=== PATIENT | female | born 2000 | race African-American/Black ===

== ENCOUNTER 2022-06-22 06:16 | Emergency (ER) | payer MEDICAID, SELFPAY ==
[2022-06-22 06:25] VITALS: BP 132/83; PULSE 76; RESP 18; O2SAT 98
--- NOTE | 2022-06-22 07:01 | ED.GENADULT ---
HPI - General Adult General Chief complaint: Dental/Oral Stated complaint: toothpain Time Seen by Provider: 06/22/22 06:27 History of Present Illness HPI narrative: 22-year-old female presented to the emergency department for evaluation of worsening dental pain. Patient states that she has had dental pain for approximately last 2 years. Patient did have a fractured tooth a few months ago and states that over the last 2 days she has had even worsening pain. Patient is also concerned she may be . Related Data Allergies Allergy/AdvReac Type Severity Reaction Status Date / Time No Known Allergies Allergy Verified 06/22/22 07:20 Review of Systems Review of Systems: CONSTITUTIONAL: Denies fever, chills, or sweats. EYES: Denies visual changes, redness, or discharge. ENT: Dental pain CARDIOVASCULAR: Denies chest pain, palpitations, or edema. RESPIRATORY: Denies cough or dyspnea. GASTROINTESTINAL: Denies abdominal pain, nausea, vomiting, or diarrhea. GENITOURINARY: Denies dysuria or hematuria. SKIN: Denies rash or itching. MUSCULOSKELETAL: Denies back pain, joint pain, or myalgia. NEUROLOGIC: Denies headache, numbness, or weakness. Exam Narrative: APPEARANCE: Well appearing, no pain, no distress, well-nourished. HEAD: normocephalic, atraumatic. EYES: PERRLA/EOMI, conjunctivae clear. NOSE: Normal no drainage EARS:TMS clear with good light reflex. THROAT: Pharynx clear, no exudate. Multiple dental caries NECK: Supple. No adenopathy, no masses. RESPIRATORY: Airway patent, respirations nonlabored. Clear to auscultation bilaterally, no rales, rhonchi, wheezing. CARDIOVASCULAR: Regular rate and rhythm without murmurs rubs or gallops. ABDOMINAL: Soft, nontender, nondistended, normal bowel sounds MUSCULOSKELETAL: Moves all extremities. Strength/ROM intact, No edema, No calf tenderness. NEURO: Alert. Cranial nerves II through XII intact. Grossly intact SKIN: Warm, dry. Normal Color Course Course Emergency Course: No dental abscess amenable to drainage. Patient was started on antibiotics for suspected dental infection. Patient's test was negative. Patient was encouraged of close follow-up with a dentist. Vital Signs Vital signs: Vital Signs Pulse Rate 76 06/22/22 06:25 Respiratory Rate 18 06/22/22 06:25 Blood Pressure 132/83 06/22/22 06:25 Pulse Oximetry 98 06/22/22 06:25 Pulse Rate 76 06/22/22 06:25 Respiratory Rate 18 06/22/22 06:25 Blood Pressure 132/83 06/22/22 06:25 Pulse Oximetry 98 06/22/22 06:25 Medical Decision Making Vital Signs Vital Signs: Vital Signs Pulse Rate 76 06/22/22 06:25 Respiratory Rate 18 06/22/22 06:25 Blood Pressure 132/83 06/22/22 06:25 Pulse Oximetry 98 06/22/22 06:25 Pulse Rate 76 06/22/22 06:25 Respiratory Rate 18 06/22/22 06:25 Blood Pressure 132/83 06/22/22 06:25 Pulse Oximetry 98 06/22/22 06:25 Discharge Plan Discharge Clinical Impression: Toothache, Dental caries Patient Disposition: Home, Self-Care Condition: Stable Instructions: Antibiotic Form, Toothache (ED) Additional Instructions: Tylenol for pain control. Antibiotic as directed until completed. Have close follow-up with a dentist. If you have any worsening symptoms then please call or return to the emergency department. Prescriptions: New amoxicillin-pot clavulanate 875-125 mg tablet 1 tablet PO Q12H Qty: 14 0RF Follow-up/Referrals: UNKNOWN,DOCTOR [Primary Care Provider] - Stand Alone Forms: Work/School Release IP
[2022-06-22] MEDS: ACETAMINOPHEN 500 MG TABLET 1000 MG PO (07:21)
[2022-06-22] MEDS: AMOXICILLIN/CLAVULANATE K 875-125 MG TAB 1 TABLET PO (07:22)
== END 2022-06-22 07:48 | disposition home or self-care (01) ==
PROVIDERS: Emergency Provider Emergency Medicine
DX: K02.9 Dental caries, unspecified (principal)
CPT/HCPCS: 81025; 99283; A9270

== ENCOUNTER 2023-01-31 13:23 | Emergency (ER) | payer MEDICAID, SELFPAY ==
[2023-01-31 13:26] VITALS: BP 143/77; PULSE 61; RESP 16; TEMP 36.5; O2SAT 100
--- NOTE | 2023-01-31 15:15 | ED.DENTAL ---
HPI - Dental/Oral General Chief complaint: Dental/Oral Stated complaint: toothache Time Seen by Provider: 01/31/23 13:51 Source: patient Mode of arrival: ambulatory Limitations: no limitations History of Present Illness HPI Narrative: This is a 22-year-old female presents to the ED with chief complaint of right upper tooth pain for 3 years. Patient states that she has not seen any dentist because she does not have insurance. States she was seen here 3 months ago and given amoxicillin which seemed like it helped. Denies any fevers, chills, trismus, drooling, voice changes. Related Data Allergies Allergy/AdvReac Type Severity Reaction Status Date / Time No Known Allergies Allergy Verified 06/22/22 07:20 Review of Systems Review of Systems: CONSTITUTIONAL: Denies fever, chills, or sweats. EYES: Denies visual changes, redness, or discharge. ENT: See HPI CARDIOVASCULAR: Denies chest pain, palpitations, or edema. RESPIRATORY: Denies cough or dyspnea. GASTROINTESTINAL: Denies abdominal pain, nausea, vomiting, or diarrhea. GENITOURINARY: Denies dysuria or hematuria. SKIN: Denies rash or itching. MUSCULOSKELETAL: Denies back pain, joint pain, or myalgia. NEUROLOGIC: Denies headache, numbness, dizziness, or weakness. PSYCHIATRIC: Denies anxiety or depression. Exam Narrative: GENERAL: Well-appearing, well-nourished, and in no acute distress. HEAD: Normocephalic, atraumatic. EYES: PERRLA and EOMI. ENT: Nares clear, no rhinorrhea or epistaxis. Mucous membranes moist. Oropharynx without tonsillar hypertrophy exudate or other lesions. No drooling. No trismus. Floor the mouth intact. No overt abscesses. Uvula midline. Dental caries noted to the right upper premolar. NECK: Supple. No adenopathy or masses. CHEST: No respiratory distress. Clear to auscultation. No wheezes rales or rhonchi HEART: Regular rate and rhythm. No murmur heard. Normal peripheral pulses. ABDOMEN: Soft, nontender, nondistended, normal active bowel sounds. EXTREMITIES: Normal range of motion. No edema. SKIN: Warm, dry, no rash. NEURO: Alert and oriented x3. No focal deficits. PSYCH: Normal mood and affect. Course Vital Signs Vital signs: Vital Signs Temperature 97.7 F 01/31/23 13:26 Pulse Rate 61 01/31/23 13:26 Respiratory Rate 16 01/31/23 13:26 Blood Pressure 143/77 H 01/31/23 13:26 Pulse Oximetry 100 01/31/23 13:26 Oxygen Delivery Room Air 01/31/23 13:26 Temperature 97.7 F 01/31/23 13:26 Pulse Rate 61 01/31/23 13:26 Respiratory Rate 16 01/31/23 13:26 Blood Pressure 143/77 H 01/31/23 13:26 Pulse Oximetry 100 01/31/23 13:26 Oxygen Delivery Room Air 01/31/23 13:26 MDM - Dental/Oral MDM Narrative Medical decision making narrative: This is a 22-year-old female presents to the ED with chief complaint of right upper dental pain. Vitals are stable. Afebrile. No trismus, drooling, uvula deviation. The floor of the mouth is intact. There are some caries on the right upper premolars. No obvious abscess but some swelling. Patient will be discharged in stable condition. Given prescription for Augmentin. Resources given for public a dental. Patient is understanding and agreeable with the plan for discharge and follow-up with a dentist for this. Discharge Plan Discharge Clinical Impression: Toothache, Dental caries Patient Disposition: Home, Self-Care Condition: Stable Instructions: Antibiotic Form Additional Instructions: Your symptoms are consistent with cavities on the right side. Please make sure that you see a dentist on our referral list. Please take Tylenol, ibuprofen as needed for pain. Also make sure that you are taking your antibiotics. If you have any fevers or difficulty with swallowing please return to the ER for further evaluation Prescriptions: New amoxicillin-pot clavulanate 875-125 mg tablet 1 tablet PO Q12H Qty: 10 0RF No Action amoxicillin-pot cl
--- NOTE | 2023-01-31 15:39 | PC.NURSE ---
patient states I do not have time to wait for medication my ride is here.
== END 2023-01-31 15:41 | disposition home or self-care (01) ==
PROVIDERS: Emergency Provider Physician Assistant
DX: K02.9 Dental caries, unspecified (principal); K08.89 Other specified disorders of teeth and supporting structures
CPT/HCPCS: 99283